=== PATIENT | female | born 1965 | race Caucasian/White ===

== ENCOUNTER 2021-02-06 04:47 | Day surgery (SDC) | payer OTHER ==
[2021-02-05 09:18] VITALS: BMI 25.6
[2021-02-06] MEDS ORDERED: ROCURONIUM BROMIDE 100 MG/10 ML VIAL ONE (09:01)
[2021-02-06] MEDS ORDERED: MIDAZOLAM HCL 2 MG/2 ML SINGLE DOSE VIAL ONE (09:01)
[2021-02-06] MEDS ORDERED: ceFAZolin SODIUM 1 GM VIAL ONE (09:01)
[2021-02-06] MEDS ORDERED: PROPOFOL 20 ML ONE (09:01)
[2021-02-06] MEDS ORDERED: ceFAZolin SODIUM 1 GM VIAL IVPB ONE (09:25)
[2021-02-06] MEDS ORDERED: ONDANSETRON 4 MG/2 ML VIAL ONE (09:29)
[2021-02-06] MEDS ORDERED: BUPIVACAINE HCL/PF 0.5% (5MG/ML) 10 ML VIAL IJ ONE (09:32)
[2021-02-06] MEDS ORDERED: GLYCOPYRROLATE 0.2 MG/1 ML VIAL ONE (09:56)
[2021-02-06] MEDS ORDERED: NEOSTIGMINE METHYLSULFATE 0.5 MG/ML - 10 ML MDV ONE (09:56)
[2021-02-06] MEDS ORDERED: IBUPROFEN 800 MG/8 ML IJ IVPB ONE (10:35)
[2021-02-06] MEDS ORDERED: LACTATED RINGERS SOLUTION 1,000 ML IV SCH (10:45)
[2021-02-06 15:29] VITALS: TEMP 98.2
[2021-02-06 15:32] VITALS: BP 151/79; PULSE 111
== END 2021-02-06 15:00 | disposition home or self-care (01) ==
LOC: JASU-SURG 04:47
PROVIDERS: ATTEND Surgery
PROC: 0FT44ZZ Resection of Gallbladder, Percutaneous Endoscopic Approach (ICD-10-PCS; principal; 2021-02-06 09:00)
DX: K80.44 Calculus of bile duct with chronic cholecystitis without obstruction (principal); E11.9 Type 2 diabetes mellitus without complications; I10 Essential (primary) hypertension; Z79.84 Long term (current) use of oral hypoglycemic drugs
CPT/HCPCS: 82962; 88304-TC; 94760